=== PATIENT | male | born 1960 | race Caucasian/White ===

== ENCOUNTER → 2017-09-07 | Outpatient (CLI) | payer OTHER ==
--- NOTE | 2017-09-07 17:05 | RAD ---
EXAM DESCRIPTION: Chest,2 Views CLINICAL HISTORY: DYSPNEA ON EXERTION COMPARISON: None TECHNIQUE: PA/lateral FINDINGS: There is no acute appearing cardiac or pulmonary abnormality. Heart size is normal with normal pulmonary vascularity. No pleural effusion or pneumothorax. Lungs are clear with no consolidating infiltrate. Lateral view shows intact sternum and T-spine. IMPRESSION: No acute process is identified in the chest. Electronically signed by: Nicolas Cyr MD 09/07/2017 5:03 PM CDT
--- NOTE | 2017-09-07 17:42 | US ---
EXAM DESCRIPTION: Carotid Duplex CLINICAL HISTORY: BRUIT COMPARISON: None Available. TECHNIQUE: Carotid Doppler ultrasound FINDINGS: Right Submitted images show calcified plaque in the right carotid bulb and in the origin of the right internal and external carotid arteries. Right CCA is tortuous. Axial images show 31% area stenosis of the right ICA with 53% area stenosis of the right carotid bulb. The following flow velocities were obtained: Common carotid artery peak systolic flow velocity measures 82.57 m/s. Internal carotid artery peak systolic flow velocity measures up to 138 cm/s. This is elevated suggesting 60-79% stenosis. Images with suggest a lesser degree of narrowing however. External carotid artery peak systolic flow velocity measures 102 cm/s. Flow in the right vertebral artery is antegrade. The right internal carotid to common carotid peak systolic flow velocity ratio equals 1.7 which is normal. Left Submitted images show calcified plaque in the left carotid bulb extending to the origins of left internal and external carotid arteries. Axial images show 57% area stenosis of the left carotid bulb with 10% area stenosis of the left ICA above the bulb. The following flow velocities were obtained: Common carotid artery peak systolic flow velocity measures 97 cm/s. Internal carotid artery peak systolic flow velocity measures 91 cm/s. External carotid artery peak systolic flow velocity measures 66 cm/s. Flow in the left vertebral artery is antegrade. The left internal carotid to common carotid peak systolic flow velocity ratio of 0.9 is normal. IMPRESSION: Calcified plaque at the carotid bifurcations bilaterally. Moderately elevated flow velocity in the proximal right ICA suggests 60-79% stenosis. Antegrade flow in the vertebral arteries. Electronically signed by: Nicolas Cyr MD 09/07/2017 5:41 PM CDT
== END | disposition home or self-care (01) ==
LOC: US 12:00
DX: R06.00 Dyspnea, unspecified (principal); R09.89 Other specified symptoms and signs involving the circulatory and respiratory systems

== ENCOUNTER → 2017-09-20 | Outpatient (CLI) | payer OTHER | LOC: YCFC.O 09:12 | DX: M06.9 Rheumatoid arthritis, unspecified (principal); R63.4 Abnormal weight loss ==

== ENCOUNTER 2017-10-03 06:49 | Emergency (ER) | payer OTHER ==
[2017-10-03] MEDS ORDERED: NITROGLYCERIN 0.4 MG 25 EA TAB SL ONE ×2 (06:54→07:03)
[2017-10-03] MEDS ORDERED: ASPIRIN TABLET 325 MG TAB ONE (06:54)
[2017-10-03] MEDS ORDERED: ASPIRIN TABLET 325 MG TAB PO ONE (07:03)
[2017-10-03] MEDS ORDERED: SODIUM CHLORIDE 0.9% (FLUSH) 10 ML SYG IV PRN (07:03)
[2017-10-03] MEDS ORDERED: SODIUM CHLORIDE 0.9% 1000ML 1,000 ML ONE (07:25)
[2017-10-03] MEDS ORDERED: SODIUM CHLORIDE 0.9% 1000ML 1,000 ML IVS ONE (07:32)
[2017-10-03] MEDS ORDERED: MORPHINE SULFATE INJ 10 MG/ML VIAL IV ONE (07:37)
--- NOTE | 2017-10-03 07:56 | ED.PDOC ---
History of Present Illness - General Chief Complaint: Cardiovascular Problem Stated Complaint: chest pain Time Seen by Provider: 10/03/17 07:15 Source: patient Exam Limitations: no limitations - History of Present Illness Initial Comments: Patient presents with chest pain for 3 hours. He says it is mid-sternal with radiation to the left arm. It feels like "someone is sitting on me". It is constant, worse with walking, better with rest. He denies previous episodes but he says that he had a "heart attack" in 2004 that he was diagnosed with in the hospital then he went AMA the following morning without further intervention. He says that he has had BRBPR for 2 weeks and that his regular doctor has tried to set up an appointment with GI in [place] but the patient has not had transportation to there. He says he is still having blood in his stools. He also complains of dyspnea but that has resolved with oxygen by [place]. Denies any other medical history. He smokes 1/2 ppd. No other complaints. Timing/Duration: 1-3 hours Severity: moderate Improving Factors: rest Worsening Factors: movement Associated Symptoms: shortness of breath Allergies/Adverse Reactions: Allergies NO KNOWN ALLERGY Allergy (Verified 10/03/17 07:00) Home Medications: Ambulatory Orders NK [NK] 10/03/17 Review of Systems - Review of Systems Constitutional: States: no symptoms reported EENTM: States: no symptoms reported Respiratory: States: see HPI Cardiology: States: see HPI Gastrointestinal/Abdominal: States: see HPI Genitourinary: States: no symptoms reported Musculoskeletal: States: no symptoms reported Skin: States: no symptoms reported Neurological: States: no symptoms reported Endocrine: States: no symptoms reported Hematologic/Lymphatic: States: no symptoms reported Past Medical History (General) - Patient Medical History Hx Seizures: No Hx Stroke: No Hx Dementia: No Hx Asthma: No Hx of COPD: No Hx Cardiac Disorders: No Hx Congestive Heart Failure: No Hx Pacemaker: No Hx Hypertension: Yes Hx Thyroid Disease: No Hx Diabetes: Yes Hx Gastroesophageal Reflux: No Hx Renal Disease: No Hx Cancer: No Hx of HIV: No Hx Hepatitis C: No Hx MRSA: No Surgical History: no surgical history - Social History Hx Tobacco Use: No Hx Chewing Tobacco Use: No Hx Alcohol Use: No Hx Substance Use: No Hx Substance Use Treatment: No Hx Depression: No Feels Threatened In Home Enviroment: No Feels Threatened In a Relationship: No Hx Physical Abuse: No Hx Emotional Abuse: No Hx Suspected Abuse: No Family Medical History - Family History Father Family History: Unknown Mother Family History: Unknown Physical Exam - Physical Exam General Appearance: Alert Eye Exam: bilateral normal Ears, Nose, Throat: normal ENT inspection Neck: non-tender, full range of motion, supple Respiratory: other - distant breath sounds. no rales/rhonchi/wheezes Cardiovascular/Chest: normal peripheral pulses, regular rate, rhythm, no edema Gastrointestinal/Abdominal: normal bowel sounds, non tender, soft Back Exam: normal inspection Extremity: other - pale nail beds Neurologic: no motor/sensory deficits, alert, normal mood/affect, oriented x 3 Skin Exam: pallor Lymphatic: no adenopathy Progress - Progress Progress: 10/03/17 07:59 EKG read by me showed NSR with no ST changes nor T wave inversions. No LBBB. Troponin negative. Hb 5.5. Patient was given O negative blood. He was also given Morphine 4 mg IV x one since the chest pain did not improve with Nitroglycerin. Accepted for transfer to [facility] for symptomatic anemia. Laboratory Tests 10/03/17 10/03/17 07:08 07:08 WBC 9.8 RBC 3.37 L Hgb 5.5 L* Hct 18.2 L MCV 54.0 L MCH 16.3 L MCHC 30.1 L RDW 19.3 H Plt Count 368 MPV 8.6 Absolute Neuts (auto) 6.70 Absolute Lymphs (auto) 2.20 Absolute Monos (auto) 0.80 Absolute Eos (auto) 0.10 Absolute Basos (auto) 0.10 Neutrophils % 68.0 Lymphocytes % 22.4 Monocytes % 8.0 Eosinophils % 0.9 L Basophils % 0.7 PT 12.0 INR 1.030 PTT (SP) 30.3 D-Dimer, Quantitative 257 H* Sodium 127 L Potassium 3.9 Chloride 98 L Carbon Dioxide 22 Anion Gap 10.9 L BUN 11 Creatinine 0.73 BUN/Creatinine Ratio 15.1 Random Glucose 102 Serum Osmolality 254.8 L* Calcium 8.4 Magnesium 1.7 L Total Bilirubin 0.4 Direct Bilirubin < 0.1 Indirect Bilirubin 0.3 AST 20 ALT 14 Alkaline Phosphatase 79 Creatine Kinase 37 L CK-MB (CK-2) 0.7 CK-MB (CK-2) % Not Reportable Troponin I < 0.02 B-Natriuretic Peptide 51.2 Serum Total Protein 7.7 Albumin 3.2 Departure - Departure Clinical Impression: Angina at rest, Anemia Disposition: Transfer to Hospital Condition: Fair Departure Forms: ED Discharge - Pt. Copy, Patient Portal Self Enrollment Diet: other - NPO Activity: other - as per hospitalist Referrals: Moiz Gonzalez MD [Primary Care Provider] - 1-2 Weeks Home Medications: Ambulatory Orders NK [NK] 10/03/17
[2017-10-03] MEDS ORDERED: SODIUM CHLORIDE 0.9% 250ML 250 ML ONE (08:17)
--- NOTE | 2017-10-03 08:29 | RAD ---
EXAM DESCRIPTION: Chest,1 View CLINICAL HISTORY: 57 years, Male, chest pain COMPARISON: Chest x-ray dated 09/07/2017 FINDINGS: Single frontal chest radiograph was performed. The lungs are well expanded and clear aside from minimal hazy opacity in the LEFT upper lobe, stable since the most recent study likely present and slightly more prominent than the study dated 01/14/2012. The costophrenic sulci are sharp. The cardiac silhouette, hilar regions, trachea, soft tissues and bony structures are unremarkable aside from degenerative changes. IMPRESSION: No acute cardiopulmonary disease. Small hazy opacity in the LEFT upper lobe is slightly more prominent than on the study dated 2011. Consider a nonemergent chest CT for further characterization. Electronically signed by: Maria Del Rosario Oliva MD 10/03/2017 8:27 AM CDT
[2017-10-03 08:42] VITALS: TEMP 97.5
[2017-10-03 09:26] VITALS: BP 109/65; O2SAT 96
== END 2017-10-03 08:44 | disposition short-term general hospital (02) ==
LOC: ER 06:49
DX: I20.9 Angina pectoris, unspecified (principal); D64.9 Anemia, unspecified; I10 Essential (primary) hypertension; E11.9 Type 2 diabetes mellitus without complications; K62.5 Hemorrhage of anus and rectum; F17.200 Nicotine dependence, unspecified, uncomplicated
CPT/HCPCS: 36415; 71045; 80048; 80076; 82550; 82553; 83880; 84484; 85025; 85379; 85610; 85730; 86922; 93005; J2270; J7030; J7050; P9016

== ENCOUNTER 2018-01-26 14:23 | Emergency (ER) | payer OTHER ==
--- NOTE | 2018-01-26 14:55 | ED.PDOC ---
History of Present Illness - General Chief Complaint: General Stated Complaint: SOB AND RECTAL BLEEDING Time Seen by Provider: 01/26/18 14:27 Source: patient Exam Limitations: no limitations - History of Present Illness Initial Comments: Christian Swartz 57 y/o male stated that he was diagnosed with metastatic colorectal ca 2 months ago inoperable at this time and recommended to have radiation and chemo but still thinking about it offered during his hospitalization but stating he does not want what he saw on his uncle with rectal cancer while undergoing chemo/radn. treatment his uncle eventually .Today came to ER with one week of passing out gross blood/rectum with bowel movement and with easy fatigability.No nausea/or vomiting blood ,no abdominal pain or tenesmus. He was hospitalized at [facility] 03 Oct 2017 work up done MRI-showing circumferential tumor 5cms-7 cms proximal to anal verge extending to mucosa,muscularis,serosa and rectal fascia.Biopsy of rectal mass result-moderately differentiated invasive adenocarcinoma.On his admission at [facility] received 3 units PRBC on 03 oct 2017 hgb-9.7/hct-31.3.hi s last discussion with oncologist was when he got admitted first time for severe anemia in Oct 03 2017. Timing/Duration: constant, other - one week Severity: moderate Improving Factors: nothing Worsening Factors: nothing Associated Symptoms: other - see hpi Allergies/Adverse Reactions: Allergies NO KNOWN ALLERGY Allergy (Verified 01/26/18 14:42) Home Medications: Ambulatory Orders NK [NK] 10/03/17 Review of Systems - Review of Systems Constitutional: States: weakness EENTM: States: no symptoms reported Respiratory: States: no symptoms reported Cardiology: States: no symptoms reported Gastrointestinal/Abdominal: States: see HPI, other - rectal bleeding Musculoskeletal: States: no symptoms reported Skin: States: no symptoms reported Neurological: States: no symptoms reported Endocrine: States: no symptoms reported Hematologic/Lymphatic: States: no symptoms reported Past Medical History (General) - Patient Medical History Hx Seizures: No Hx Stroke: No Hx Dementia: No Hx Asthma: No Hx of COPD: Yes Hx Cardiac Disorders: No Hx Congestive Heart Failure: No Hx Pacemaker: No Hx Hypertension: Yes Hx Thyroid Disease: No Hx Diabetes: No Hx Gastroesophageal Reflux: No Hx Renal Disease: No Hx Cancer: Yes - RECTAL CANCER Hx of HIV: No Hx Hepatitis C: No Hx MRSA: No Surgical History: other - knee,back - Vaccination History Hx Tetanus, Diphtheria Vaccination: No Hx Influenza Vaccination: No Hx Pneumococcal Vaccination: No Immunizations Up to Date: No - Social History Hx Tobacco Use: Yes Hx Chewing Tobacco Use: No Hx Alcohol Use: Yes - SOBER 8YRS Hx Substance Use: Yes Hx Substance Use Treatment: No Hx Depression: Yes Hx Physical Abuse: No Hx Emotional Abuse: No Hx Suspected Abuse: No - Female History Patient is a Female of Child Bearing Age (10 -59 yrs old): No Family Medical History - Family History Father Family History: Unknown Hx Family Cancer: Yes - mom-liver,brain aneurysm; 2 uncles-colon Mother Family History: Unknown Physical Exam - Physical Exam General Appearance: Alert, Comfortable, No apparent distress Eye Exam: bilateral normal Ears, Nose, Throat: hearing grossly normal, normal ENT inspection Neck: non-tender, full range of motion, supple Respiratory: chest non-tender, lungs clear, normal breath sounds Cardiovascular/Chest: normal peripheral pulses, regular rate, rhythm, no murmur Peripheral Pulses: radial,right: 2+, radial,left: 2+ Gastrointestinal/Abdominal: non tender, soft, no organomegaly Rectal Exam: deferred - hpi as patient stated gross blood stoo/w/colorectal ca Back Exam: no CVA tenderness, no vertebral tenderness Extremity: non-tender, no pedal edema, no calf tenderness Neurologic: alert, oriented x 3 Skin Exam: normal color, warm/dry Progress - Progress Progress: 01/26/18 15:00 Last Vital Signs Temp 97.5 F L 01/26/18 14:37 Pulse 76 01/26/18 14:37 Resp 22 01/26/18 14:43 BP 125/70 01/26/18 14:37 Pulse Ox 86 L 01/26/18 14:37 01/26/18 15:31 Talked to him about undergoing chemo /radiation but declined since some of his friends and uncle had treatment for cancer and had not have good outcome.He talked about alternative medicine 01/26/18 17:23 Patient had been eating given lunch plate no N/V 01/26/18 18:[address] going to [facility] and tried getting him admitted to [facility] but could not admit GI bleed at this time Patient fairly stable discuss situation with patient and stated as long as he gets the blood transfusion wants to go back home. Does not want to go anywhere else and again talked to him about medical treatment for his colon ca to give a chance but stated has talked to some one about homeopathic medicine instead. 01/26/18 20:33 Talked to him getting transferred to [facility] - got aggravated stating just needs blood transfusion and wanting to go back home after the blood transfusion and he will get someone else tomorrow to bring him to since unable to get a ride coming back to [place].Again talked to him about /chemo and radiation treatment stated want to leave it to GOD his fate. Just wants to have blood transfusion 01/26/18 23:09 01/26/18 23:11 Had 2 units PRBC transfused - Results/Orders Results/Orders: Laboratory Tests 01/26/18 01/26/18 01/26/18 15:00 15:00 15:00 WBC 5.1 RBC 3.29 L Hgb 6.2 L* Hct 20.9 L MCV 63.5 L MCH 18.8 L MCHC 29.6 L RDW 19.3 H Plt Count 308 MPV 7.7 Absolute Neuts (auto) Not Reportable Absolute Lymphs (auto) Not Reportable Absolute Monos (auto) Not Reportable Absolute Eos (auto) Not Reportable Neutrophils % Not Reportable Neutrophils % (Manual) 60.0 Lymphocytes % Not Reportable Lymphocytes % (Manual) 28.0 Monocytes % Not Reportable Monocytes % (Manual) 8.0 Eosinophils % Not Reportable Basophils % Not Reportable Eosinophils 4.0 Hypochromia 3+ Platelet Estimate Normal Poikilocytosis 1+ Anisocytosis 2+ Microcytosis 2+ PT 9.9 INR 0.99 PTT (SP) 24.5 D-Dimer, Quantitative Sodium 131 L Potassium 4.0 Chloride 100 L Carbon Dioxide 26 Anion Gap 9.0 L BUN 10 Creatinine 0.74 BUN/Creatinine Ratio 13.5 Random Glucose 69 L Serum Osmolality 260.1 L Calcium 8.8 Magnesium 1.9 Total Bilirubin 0.3 Direct Bilirubin < 0.1 Indirect Bilirubin 0.2 AST 24 ALT 19 Alkaline Phosphatase 82 Creatine Kinase 33 L CK-MB (CK-2) 0.5 CK-MB (CK-2) % Not Reportable Troponin I < 0.02 Serum Total Protein 7.9 Albumin 3.4 Patient ABO/Rh O POSITIVE Antibody Screen Negative Crossmatch See Detail 01/26/18 15:00 WBC RBC Hgb Hct MCV MCH MCHC RDW Plt Count MPV Absolute Neuts (auto) Absolute Lymphs (auto) Absolute Monos (auto) Absolute Eos (auto) Neutrophils % Neutrophils % (Manual) Lymphocytes % Lymphocytes % (Manual) Monocytes % Monocytes % (Manual) Eosinophils % Basophils % Eosinophils Hypochromia Platelet Estimate Poikilocytosis Anisocytosis Microcytosis PT INR PTT (SP) D-Dimer, Quantitative 1.63 H* Sodium Potassium Chloride Carbon Dioxide Anion Gap BUN Creatinine BUN/Creatinine Ratio Random Glucose Serum Osmolality Calcium Magnesium Total Bilirubin Direct Bilirubin Indirect Bilirubin AST ALT Alkaline Phosphatase Creatine Kinase CK-MB (CK-2) CK-MB (CK-2) % Troponin I Serum Total Protein Albumin Patient ABO/Rh Antibody Screen Crossmatch - EKG/XRAY/CT XRAY: chest - no acute abnormalties noted CT Ordered: Yes - No PE.nonspecific hilar adenopathy;copd changes Departure - Departure Clinical Impression: Anemia complicating neoplastic disease, Chronic blood loss anemia, Adenocarcinoma of rectum, Drug therapy management recommendation refused by patient Time of Disposition: 23:06 Disposition: Discharge to Home or Self Care Condition: Poor Departure Forms: ED Discharge - Pt. Copy, Patient Portal Self Enrollment Instructions: Colon and Rectal Cancer Referrals: Moiz Gonzalez MD [Primary Care Provider] - 1-2 Weeks Home Medications: Ambulatory Orders NK [NK] 10/03/17 Additional Instructions: Return to emergency room as needed;need to follow up with [facility] [phone] 27 January 2018
--- NOTE | 2018-01-26 15:47 | RAD ---
Procedure: XR CHEST 1 VIEW Exam Date: 01/26/2018 Ordering Provider: Jose J Knott Clinical Indication: sob Comparison: 10/03/2017 Findings: The heart is not enlarged. No focal lung consolidation. No pleural effusion. No pneumothorax. No acute osseous abnormalities. Impression: 1. No acute abnormalities in the chest. Electronically signed by: Andrea Guthrie MD 01/26/2018 3:46 PM CDT
[2018-01-26] MEDS ORDERED: SODIUM CHLORIDE 0.9% 250ML 250 ML ONE (18:02)
--- NOTE | 2018-01-26 18:28 | CT ---
EXAM: CTA Chest CLINICAL INDICATION: 57-year-old male with elevated d-dimer, low SaO2. COMPARISON: None. EXAMINATION: CT angiography of the pulmonary arteries was performed following intravenous administration of contrast. Coronal and bilateral oblique maximum intensity projections (MIPS) were created. This exam was performed according to our departmental dose optimization program which includes use of automated exposure control, adjustment of the mA and/or kV according to patient size and/or use of iterative reconstruction technique. FINDINGS: Chest: Evaluation through the lungs reveals emphysema without focal opacity, pleural effusion or pneumothorax. There is minimal dependent basilar atelectasis and scarring. The tracheobronchial airways are patent. Prominent multifocal mediastinal lymph nodes, the largest of which in the pretracheal distribution measures 1 cm in short axis dimension. Multiple smaller lymph nodes noted. Lymphatic prominence of the RIGHT hilar region measuring 14 mm, on the LEFT measuring 1 cm. Heart size within normal limits. No pericardial effusion. Coronary artery atherosclerotic calcification. Nonspecific thickening of the distal esophagus. Limited evaluation of the upper abdomen shows no acute intra-abdominal abnormalities. Multiple bilateral foci of hypoattenuation present within the kidneys suggestive of simple renal cysts, most of which are too small to accurately characterize, the largest measuring 1 cm. The osseous structures reveal degenerative change. CT angiography: Diagnostic CT angiography of the pulmonary arteries without intraluminal filling defect noted to suggest pulmonary arterial embolus. IMPRESSION: 1. Diagnostic pulmonary angiography without findings to suggest pulmonary arterial embolus. 2. The lungs are clear without focal opacity, pleural effusion or pneumothorax. 3. Nonspecific hilar and mediastinal lymphatic prominence. 4. Emphysema. Electronically signed by: Merissa Norris MD 01/26/2018 6:27 PM CDT
[2018-01-26 22:14] VITALS: TEMP 98.8; O2SAT 100
[2018-01-26 23:27] VITALS: BP 145/78
== END 2018-01-26 23:15 | disposition home or self-care (01) ==
LOC: ER 14:23
DX: C19 Malignant neoplasm of rectosigmoid junction (principal); K62.5 Hemorrhage of anus and rectum; D50.0 Iron deficiency anemia secondary to blood loss (chronic); I10 Essential (primary) hypertension; J44.9 Chronic obstructive pulmonary disease, unspecified; F32.9 Major depressive disorder, single episode, unspecified; Z53.29 Procedure and treatment not carried out because of patient's decision for other reasons; Z87.891 Personal history of nicotine dependence
CPT/HCPCS: 36415; 71045; 71275; 80048; 80076; 82550; 82553; 84484; 85025; 85379; 85610; 85730; 86850; 86900; 86901; 86922; J7050; P9016

== ENCOUNTER 2018-09-19 18:48 | Emergency (ER) | payer OTHER ==
--- NOTE | 2018-09-19 20:17 | ED.PDOC ---
History of Present Illness - General Chief Complaint: GI Problem Stated Complaint: rectal bleeding x1 yr Time Seen by Provider: 09/19/18 20:09 - History of Present Illness Initial Comments: 58 Y/O MALE, C/O RECTAL BLEEDING. PT REFERS THAT APPROX ONE YEAR AGO HAD RECTAL BLEED, WAS TRANSFERRED TO [place], WAS TOLD HE HAD PROSTATE CA AND HE THINKS POSS COLON CA WELL. CHEMO AND RADIO WAS OFFERED BUT PT DECLINES. HAS BEEN BLEEDING OFF AND ON SINCE THEN, INCREASED IN THE PAST 4 DAYS, MODERATE TO SEVERE ACC TO PATIENT. (+) CLOTS, INTERMITTENT. HAS BEEN FEELING WEAK AND SOME SOB WITH PHYSICAL ACTIVITY, OCC BLURRED VISION. DENIES FEVER, COUGH, ABD PAIN, N/V/D, DYSURIA, PEDAL EDEMA. Allergies/Adverse Reactions: Allergies NO KNOWN ALLERGY Allergy (Verified 01/26/18 14:42) Home Medications: Ambulatory Orders NK 10/03/17 Review of Systems - Review of Systems Constitutional: States: weakness. Denies: diaphoresis, fever EENTM: States: blurred vision. Denies: double vision, ear pain, ear discharge, nose pain, nose congestion Respiratory: States: short of breath. Denies: cough, orthopnea Cardiology: Denies: chest pain, edema, palpitations, syncope Gastrointestinal/Abdominal: Denies: abdominal pain, constipation, diarrhea, nausea, vomiting Genitourinary: Denies: dysuria, frequency, hematuria Musculoskeletal: States: back pain. Denies: joint pain, joint swelling Skin: Denies: change in hair/nails, dryness Neurological: Denies: anxiety, depressed Endocrine: Denies: excessive sweating, flushing Hematologic/Lymphatic: States: anemia. Denies: easy bleeding, easy bruising Past Medical History (General) - Patient Medical History Hx Seizures: No Hx Stroke: No Hx Dementia: No Hx Asthma: No Hx of COPD: No Hx Cardiac Disorders: Yes Hx Congestive Heart Failure: No Hx Pacemaker: No Hx Hypertension: Yes Hx Thyroid Disease: No Hx Diabetes: No Hx Gastroesophageal Reflux: No Hx Renal Disease: No Hx Cancer: Yes - colon, prostate Hx of HIV: No Hx Hepatitis C: No Hx MRSA: No Surgical History: other - Vaccination History Hx Tetanus, Diphtheria Vaccination: Yes Hx Influenza Vaccination: No Hx Pneumococcal Vaccination: No - Social History Hx Tobacco Use: Yes Hx Chewing Tobacco Use: No Hx Alcohol Use: Yes - SOBER 8YRS Hx Substance Use: Yes Hx Substance Use Treatment: No Hx Depression: Yes Hx Physical Abuse: No Hx Emotional Abuse: No Hx Suspected Abuse: No Family Medical History - Family History Father Family History: Unknown Hx Family Cancer: Yes - mom-liver,brain aneurysm; 2 uncles-colon Mother Family History: Unknown Physical Exam - Physical Exam General Appearance: Alert, Comfortable, Other - PALE Eye Exam: bilateral normal - KURT, EOMI Ears, Nose, Throat: normal ENT inspection, normal pharynx Neck: non-tender, full range of motion, supple Respiratory: chest non-tender, lungs clear, normal breath sounds, no respiratory distress, no accessory muscle use Cardiovascular/Chest: normal peripheral pulses, regular rate, rhythm, no edema, no gallop, no JVD Gastrointestinal/Abdominal: normal bowel sounds, non tender, soft, no organomegaly, no pulsatile mass Rectal Exam: normal rectal tone, other - GLOVE SL BLOODY TINGED, HEMOCULT (+) Back Exam: normal inspection, no CVA tenderness Extremity: normal range of motion, non-tender, normal inspection, no pedal edema Neurologic: neck fitter II-XII nml as tested, no motor/sensory deficits, alert, normal mood/affect, oriented x 3 Skin Exam: warm/dry, pallor Lymphatic: no adenopathy Progress - Progress Progress: 09/19/18 21:09 Laboratory Tests 09/19/18 09/19/18 09/19/18 19:46 19:46 19:46 WBC 6.3 RBC 3.42 L Hgb 4.9 L* Hct 18.0 L MCV 52.6 L MCH 14.3 L MCHC 27.3 L RDW 22.1 H Plt Count 345 MPV 8.3 Absolute Neuts (auto) 2.30 Absolute Lymphs (auto) 3.40 Absolute Monos (auto) 0.40 Absolute Eos (auto) 0.10 Absolute Basos (auto) 0.10 Neutrophils % 36.7 L Lymphocytes % 54.2 H Monocytes % 6.6 Eosinophils % 1.7 Basophils % 0.8 PT INR PTT (SP) Sodium 127 L Potassium 3.6 Chloride 97 L Carbon Dioxide 22 Anion Gap 11.6 L BUN 14 Creatinine 0.71 BUN/Creatinine Ratio 19.7 Random Glucose 82 Serum Osmolality 254.8 L* Lactic Acid 0.9 Calcium 8.4 Total Bilirubin 0.4 AST 15 ALT 10 Alkaline Phosphatase 78 Serum Total Protein 7.5 Albumin 3.1 L Globulin 4.4 H Albumin/Globulin Ratio 0.7 L Stool Occult Blood Crossmatch 09/19/18 09/19/18 09/19/18 20:17 20:17 20:36 WBC RBC Hgb Hct MCV MCH MCHC RDW Plt Count MPV Absolute Neuts (auto) Absolute Lymphs (auto) Absolute Monos (auto) Absolute Eos (auto) Absolute Basos (auto) Neutrophils % Lymphocytes % Monocytes % Eosinophils % Basophils % PT 9.9 INR 0.99 PTT (SP) 25.1 Sodium Potassium Chloride Carbon Dioxide Anion Gap BUN Creatinine BUN/Creatinine Ratio Random Glucose Serum Osmolality Lactic Acid Calcium Total Bilirubin AST ALT Alkaline Phosphatase Serum Total Protein Albumin Globulin Albumin/Globulin Ratio Stool Occult Blood Positive Crossmatch See Detail 09/19/18 21:10 PT REMAINS WITH STABLE VS. D/W Angie ANDERSON, NANCY, WHO D/W GI, DUE TO THE ACTIVE BLEEDING, RECOMMENDS TRANSFER OUT. D/W DR KRAFT AT [facility], , ACCEPTED PT, WILL BE TRANSFERRED. Departure - Departure Clinical Impression: Rectal bleed, Acute blood loss anemia, Hyponatremia Disposition: Transfer to Hospital Condition: Fair Departure Forms: ED Discharge - Pt. Copy, Patient Portal Self Enrollment Home Medications: Ambulatory Orders NK 10/03/17
[2018-09-19] MEDS ORDERED: SODIUM CHLORIDE 0.9% 500ML 500 ML ONE (21:24)
[2018-09-19 22:57] VITALS: TEMP 98.2; O2SAT 100
[2018-09-19 23:37] VITALS: BP 165/90
== END 2018-09-19 23:41 | disposition short-term general hospital (02) ==
LOC: ER 18:48
DX: K62.5 Hemorrhage of anus and rectum (principal); D62 Acute posthemorrhagic anemia; E87.1 Hypo-osmolality and hyponatremia; C61 Malignant neoplasm of prostate; I51.9 Heart disease, unspecified; I10 Essential (primary) hypertension; F32.9 Major depressive disorder, single episode, unspecified; Z87.891 Personal history of nicotine dependence